=== PATIENT | male | born 1980 | race Caucasian/White ===

== ENCOUNTER 2021-01-25 00:22 | Emergency (ER) | payer OTHER, SELFPAY ==
[2021-01-25 00:24] VITALS: BP 163/82; PULSE 64; RESP 18; TEMP 36.3; O2SAT 96
[2021-01-25] MEDS: TETANUS,DIPHTHERIA,AC PERTUSSIS ADULT (0.5 ML) BOOSTRIX IM (02:07)
--- NOTE | 2021-01-25 02:32 | ED.GENADULT ---
HPI - General Adult General Chief complaint: Wound/Laceration Stated complaint: Finger lac Time Seen by Provider: 01/25/21 00:57 History of Present Illness HPI narrative: Patient is a 40-year-old gentleman who presents the emergency department with chief complaint of left index finger laceration. Patient reports he was chopping vegetables and chopped off the tip of his left index finger. The patient states that it is continued to count ooze since the laceration occurred reports does not have the residual flap. Patient reports thinks his last tetanus shot was around 2004. Patient states that otherwise he is intact motor and sensory proximal to the injury. Related Data Home Medications Medication Instructions Recorded Confirmed No Home Medications 01/25/21 01/25/21 Allergies Allergy/AdvReac Type Severity Reaction Status Date / Time No Known Allergies Allergy Verified 01/25/21 00:26 Review of Systems Review of Systems: Narrative: A 10 system review of systems was completed on the patient and is negative except for what is stated in the HPI. Nursing and ancillary documentation was reviewed. [facility] Family History Family History Sibling Hypertension Exam Narrative: Exam Narrative: GENERAL: Well-appearing, well-nourished, and in no acute distress. HEAD: Normocephalic, atraumatic. EYES: PERRLA and EOMI. ENT: Nares clear, no rhinorrhea or epistaxis. Mucous membranes moist. NECK: Supple. CHEST: Clear to auscultation. No respiratory distress. HEART: Regular rate and rhythm. No murmur heard. Normal peripheral pulses. ABDOMEN: Soft, nontender, nondistended, normal active bowel sounds. EXTREMITIES: Normal range of motion. No edema. There is 1/2 cm avulsion to the tip of the left index finger. The tissue was unable to be approximated with suture. SKIN: Warm, dry, no rash. NEURO: No focal deficits. Alert and oriented x3. PSYCH: Normal mood and affect. Course Course Emergency Course: Due to the foot being avulsed of the finger a hemostatic dressing was applied to the wound. A tetanus shot was given to the patient. Patient will be discharged to follow-up with plastic/hand surgery. Vital Signs Vital signs: Vital Signs Temperature 36.3 C L 01/25/21 00:24 Pulse Rate 64 01/25/21 00:24 Respiratory Rate 18 01/25/21 00:24 Blood Pressure 163/82 H 01/25/21 00:24 Pulse Oximetry 96 01/25/21 00:24 Temperature 36.3 C L 01/25/21 00:24 Pulse Rate 69 01/25/21 02:53 Respiratory Rate 14 01/25/21 02:53 Blood Pressure 142/75 H 01/25/21 02:53 Pulse Oximetry 99 01/25/21 02:53 Medical Decision Making Vital Signs Vital Signs: Vital Signs Temperature 36.3 C L 01/25/21 00:24 Pulse Rate 64 01/25/21 00:24 Respiratory Rate 18 01/25/21 00:24 Blood Pressure 163/82 H 01/25/21 00:24 Pulse Oximetry 96 01/25/21 00:24 Temperature 36.3 C L 01/25/21 00:24 Pulse Rate 69 01/25/21 02:53 Respiratory Rate 14 01/25/21 02:53 Blood Pressure 142/75 H 01/25/21 02:53 Pulse Oximetry 99 01/25/21 02:53 Discharge Plan Discharge Clinical Impression: Fingertip avulsion Qualifiers: Encounter type: initial encounter Qualified Code(s): S61.209A - Unspecified open wound of unspecified finger without damage to nail, initial encounter Patient Disposition: Home, Self-Care Condition: Stable Instructions: Antibiotic Form, Skin Avulsion (ED) Prescriptions: No Action No Home Medications RF: 0 Follow-up/Referrals: Adam Stockton MD [Physician] - 1 Week PHYSICIAN NOT ON STAFF,NONSTAFF [Primary Care Provider] - Time of Disposition: 02:37
[2021-01-25 02:53] VITALS: BP 142/75; PULSE 69; RESP 14; O2SAT 99
== END 2021-01-25 02:54 | disposition home or self-care (01) ==
PROVIDERS: Emergency Provider Emergency Medicine
DX: S61.201A Unspecified open wound of left index finger without damage to nail, initial encounter (principal); Z23 Encounter for immunization; W27.4XXA Contact with kitchen utensil, initial encounter; Y93.G1 Activity, food preparation and clean up
CPT/HCPCS: 90471; 90715; 99282

== ENCOUNTER 2022-07-09 08:00 | Outpatient (RCR) | payer OTHER, SELFPAY ==
--- NOTE | 2022-04-30 10:28 | PTOPEVAL ---
PHYSICAL THERAPY INITIAL EVALUATION. Thank you for referring Atul Hall to [facility].? The patient is scheduled to be seen for therapy? 1x/week for 4 weeks. Please review, sign, date and return this plan of care KASSANDRA. I agree with and certify that the following plan of care is medically necessary. Referring Physician Date Attending Provider: Lois Trujillo NP *PT Outpatient Evaluation Start: 04/30/22 Evaluation Information Diagnosis low back pain Onset chronic Subjective Information Pt states he was in the [employer] Query Text:As Reported By Patient/ Misa for many years. 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 He states he thinks this is just chronic wear and tear from being in the [employer]. He reports pain around his L PSIS , he states this does not prevent him from working out or performing his daily tasks. He states he has had this issue before were he would have to stop working and go lay down on the floor. He states it feels best after he works out and hurts the most when it is standing sit on a hard floor. Pain Assessment Left Lower Back Reported Pain Level 5 Pain Description Aching,Sharp Pain Frequency Chronic,Intermittent Lowest Pain Intensity 2 Greatest Pain Intensity 7 Pain Aggravating Factors Prolonged Position,Walking, Weight Bearing/Standing Lumbar ROM Lumbar Flexion (0-90) 60 Lumbar Flexion Active Mid Stanley Lumbar Extension (0-40) 10 Lateral Flexion 2 in above lateral joint line Query Text:Active Hands to: bilaterally Lateral Rotation Right (0-45) 20 Lateral Rotation Left (0-45) 20 Lumbar ROM 75% of Normal Normal Lumbar Segmental Motion No Lower Extremity Range of Motion Gross Lower Extremity Range of Motion sandy hip flexion to 100 Lower Extremity Muscle Strength Testing General Lower Extremity Strength WFL/Left,WFL/Right Gross Lower Extremity Strength sandy LE grossly 5/5 sandy hip abduction 4/5 Muscle Length Testing Two-Joint Hip Flexor Shortened Muscles Short (R) Iliopsoas,Short (L) Iliopsoas,Short (R) Rectus Femoris,Short (L) Rectus
--- NOTE | 2022-05-13 08:44 | PCPTNOTE ---
Patient no showed to appointment. Called and spoke with patient who states he got called out of town for work. Patient reports he needs to cancel appointment on 06/02/22 but will be at appointment on 05/21/22.
--- NOTE | 2022-06-02 09:01 | PCPTNOTE ---
Patient called & cancelled scheduled progress report this date due to work conflicts. He has been rescheduled.
--- NOTE | 2022-06-11 09:36 | PTOPPROG ---
Evaluation Information Assessment Status Progress Diagnosis back pain Onset chronic Subjective Information Pt states his back pain is doing better, but he also has not been doing his usual daily exercise. He reports fair compliance with his therapy HEP. He states he has also been working from home which has limited his time standing on concrete. Assessment PT Clinical Summary Atul presents to therapy today for his progress report following 2 visits of skilled therapy and intermittent participation in a HEP. He reports decreased pain in the last week but has also been resting more than he usually does. He continues to have significantly decreased ROM in his hamstrings and hip flexors bilaterally. Continuation of HEP in indicated. Pt will follow up in a month to address HEP and to progress as needed. Plan of Care Interventions Manual Therapy,Neuro Re-education,Patient/ Caregiver Educati,Therapeutic Activities, Therapeutic Exercise PT Services Indicated Yes Treatment Frequency and follow up in one month if needed Duration These treatments will address the objective and functional deficits as defined above. The patient will be advanced safely and appropriately in order for the patient to progress towards his/her prior level of function. Additional exercises will be introduced and as well as a comprehensive home exercise program upon discharge, if needed, ?to ensure carryover of functional gains achieved in the clinic. This treatment plan has been reviewed and agreement upon by the patient.
--- NOTE | 2022-07-09 08:34 | PTOPDC ---
Assessment and note entered by Pauline Wilson, PT, DPT Evaluation Information Assessment Status Discharge Diagnosis back pain Onset chronic Subjective Information Pt states he has localized soreness that is borderline pain after exercise. He also has pain when he stands for a prolonged period of time. He states stretching after exercise helps to manage his pain very well. He states currently he has a very mild pain that is localized, he states he has had this for 20 years. Reported Pain Level Pain Score 1: Self Report Assessment PT Clinical Summary Atul presents to therapy today for his progress report following another month long participation in his home stretching program along side with his general exercises. Today he demonstrates improved LE flexibility and improved spinal mobility. He reports less pain after exercise. He was instructed in additional exercise to address his core strength. He has met all of his therapy goals at this time. Skilled therapy services are no longer indicated and pt will be discharged at this time. Plan of Care PT Services Indicated No Treatment Frequency and to be discharged Duration
== END 2022-07-21 09:05 | disposition home or self-care (01) ==
LOC: ANHGOSHPT 08:00
PROVIDERS: PCP Family Medicine; Visit Provider Nurse Practitioner Family
DX: M54.50 Low back pain, unspecified (principal)
CPT/HCPCS: 97110; 97112; 97140; 97161

== ENCOUNTER 2024-03-05 09:05 | Outpatient (CLI) | payer OTHER, SELFPAY ==
[2024-03-05 12:52] LABS: Hematocrit 48.5 % (42.0-52.0); Hemoglobin 16.5 g/dL (14.0-18.0); Mean Corpuscular Hemoglobin 30.2 pg (26-34); Mean Corpuscular Volume 88.8 fl (80-100); Mean Platelet Volume 10.3 fl (7.4-10.4); Platelet Count Result 256 k/mm3 (150-375); Red Blood Count 5.46 M/mm3 (4.6-6.20); Red Cell Distribution Width 12.3 % (11.5-14.5); White Blood Count 7.3 K/mm3 (4.5-10.0)
[2024-03-05 13:07] LABS: Alanine Aminotransferase 44 U/L (6-50); Albumin Level 4.4 g/dL (3.5-5.1); Alkaline Phosphatase 58 U/L (38-126); Anion Gap 4 mmol/L (4-12); Aspartate Amino Transferase 55 U/L (17-59); Bilirubin,Total 0.8 mg/dL (0.2-1.3); Blood Urea Nitrogen 11 mg/dL (9-20); Calcium 9.1 mg/dL (8.4-10.2); Carbon Dioxide 28 mmol/L (22-30); Chloride 105 mmol/L (98-107); Cholesterol 222 mg/dL (0-200); Estimated Glomerular Filt Rate > 60; Glucose 95 mg/dL (65-110); HDL Direct 37 mg/dL; Potassium 4.3 mmol/L (3.4-5.0); Sodium 137 mmol/L (137-145); Triglycerides 188 mg/dL (<150)
[2024-03-05 13:18] LABS: LDL Cholesterol Direct 161 mg/dL
== END 2024-03-05 09:06 | disposition home or self-care (01) ==
LOC: ANHGOSHLAB 09:07
PROVIDERS: PCP Family Medicine; Visit Provider Nurse Practitioner
DX: Z00.00 Encounter for general adult medical examination without abnormal findings (principal)
CPT/HCPCS: 36415; 80053; 80061; 84443; 85027

== ENCOUNTER 2024-04-15 13:51 | Emergency (ER) | payer OTHER, SELFPAY ==
[2024-04-15 14:12] VITALS: BP 133/86; PULSE 67; RESP 18; TEMP 36.3; O2SAT 97
--- NOTE | 2024-04-15 16:30 | ED.EYEPROB ---
HPI - Eye Problem General Chief complaint: Eye Problems Stated complaint: right eye redness Time Seen by Provider: 04/15/24 16:19 History of Present Illness HPI Narrative: patient is a 44-year-old male with history of high cholesterol, on a statin here with pain below the right eye. He states that he began this morning. He notes that he has some pain and swelling in the lower eyelid on the right side. He denies any eye discharge but has been experiencing some itching in his right eye. He denies any vision changes. He does not use contact lenses, denies any eye trauma. He has not done anything for his symptoms. He notes some superficial pain on the surface of his eye when he moves it around, no posterior eye pain with range of motion. Related Data Allergies Allergy/AdvReac Type Severity Reaction Status Date / Time No Known Allergies Allergy Verified 03/05/24 08:24 Review of Systems Review of Systems: All systems reviewed & are unremarkable except as noted in HPI and below PMFSH Past Medical History Medical History Mixed hyperlipidemia No active medical problems Surgical History Surgical History No history of previous surgery Family History Family History Sibling Hypertension Social History Social History Smoking status: Former smoker Second hand tobacco smoke exposure: No Alcohol intake: current Substance use: never Substance use type: does not use Do You Feel Safe in your Home?: Yes Lack of Transportation: No Lack of Food: Never True Current Housing: I Have Housing Concerned About Future Housing: No Difficulty Paying Gas/Electric Bills: No Difficulty Paying for Meds: No Currently Unemployed: No Education: Bachelor's Degree Difficulty w/ Childcare or Family Care: No Living arrangements: with family Occupation/Education: occupation Gender identity (if verbalized by the patient): Male Agree to blood products: Yes Exam Narrative: GENERAL: Well-appearing, well-nourished, and in no acute distress. HEAD: Normocephalic, atraumatic. EYES: PERRLA and EOMI. Patient has 83 mm area of erythema on the right lower eyelid at the water line. He has tenderness at this area and just below this area. He has some mild edema throughout the lower eyelid. No pain with range of motion, no orbital tenderness. No erythema around the orbit aside from the small amount on the edge of the eye lid. no fluorescein uptake bilaterally. ENT: Nares clear. Mucous membranes moist. NECK: Supple. CHEST: Unlabored respirations HEART: Normal peripheral pulses. SKIN: Warm, dry, no rash. Course Course Emergency Course: Chart review performed. Patient here for painful itching right eye. Triage vitas normal. Patient seen evaluated, nontoxic appearing. He appears to have a superficial anterior infection of the lower eyelid consistent with hordeolum or developing early preseptal cellulitis. No concern for deep space infection. no corneal abnormalities seen on fluorescein staining. Advise warm compresses, Tylenol, ibuprofen for pain. monitoring for worsening symptoms. Will start him on antibiotics with Keflex. The results of pertinent diagnostic studies and exam findings were discussed. The patient?s provisional diagnosis and plan of care were discussed with the patient and present family. The patient and/or present family expressed understanding of the diagnosis and plan. The nurse was instructed to provide written instructions and appropriate follow-up information. The patient understands their need and responsibility to obtain additional follow-up as instructed. The risks of medications administered and prescribed were discussed with the patient and family present. Vi
[2024-04-15] MEDS: CEPHALEXIN 500 MG CAPSULE PO (18:11)
[2024-04-15 18:18] VITALS: BP 130/72; PULSE 74; RESP 16; TEMP 36.8; O2SAT 100
== END 2024-04-15 18:20 | disposition home or self-care (01) ==
PROVIDERS: Emergency Provider Student in an Organized Health Care Education/Training Program; PCP Family Medicine
DX: H00.012 Hordeolum externum right lower eyelid (principal); E78.2 Mixed hyperlipidemia; Z87.891 Personal history of nicotine dependence; Z79.899 Other long term (current) drug therapy
CPT/HCPCS: 99283; A9270

== ENCOUNTER 2024-09-11 07:53 | Outpatient (CLI) | payer OTHER, SELFPAY ==
[2024-09-11 15:42] LABS: Basophils Absolute Auto 0.1 K/mm3 (0.0-0.1); Basophils Percent Auto 1.1 % (0.2-1.2); Eosinophils Absolute Auto 0.2 K/mm3 (0-0.3); Eosinophils Percent Auto 3.9 % (0-4.4); Hematocrit 49.2 % (42.0-52.0); Hemoglobin 16.4 g/dL (14.0-18.0); Immature Granulocyte Absolute 0.04 K/mm3 (0.00-0.031); Immature Granulocyte Percent A 0.6 % (0-0.5); Lymphocytes Absolute Auto 1.25 K/mm3 (0.9-3.2); Lymphocytes Percent Auto 20.2 % (18.3-44.2); Mean Corpuscular HGB Conc 33.3 g/dl (32-36); Mean Corpuscular Hemoglobin 30.1 pg (26-34); Mean Corpuscular Volume 90.4 fl (80-100); Mean Platelet Volume 10.2 fl (7.4-10.4); Monocytes Absolute Auto 0.5 K/mm3 (0.1-0.6); Monocytes Percent Auto 7.4 % (2.6-8.5); Neutrophils Absolute Auto 4.1 K/mm3 (1.3-6.7); Neutrophils Percent Auto 66.8 % (45.5-73.1); Platelet Count Result 249 k/mm3 (150-375); Red Blood Count 5.44 M/mm3 (4.6-6.20); Red Cell Distribution Width 12.5 % (11.5-14.5); White Blood Count 6.2 K/mm3 (4.5-10.0)
[2024-09-11 16:05] LABS: Cholesterol 171 mg/dL (0-200); HDL Direct 45 mg/dL; Triglycerides 119 mg/dL (<150)
[2024-09-11 16:17] LABS: LDL Cholesterol Direct 87 mg/dL
[2024-09-11 16:32] LABS: Free T4 Free Thyroxine 1.06 ng/dL (0.78-2.19)
[2024-09-12 07:19] LABS: Triiodothyronine T3 Free 3.9 pg/mL (2.3-4.2)
[2024-09-15 17:43] LABS: Testosterone Free 90.9 pg/mL (35.0-155.0); Testosterone Total 563 ng/dL (250-1100)
[2024-09-22 20:53] LABS: Estradiol, Ultrasensitive 23 pg/mL (< OR = 29)
== END 2024-09-11 07:54 | disposition home or self-care (01) ==
DX: N52.9 Male erectile dysfunction, unspecified (principal); I10 Essential (primary) hypertension; E29.1 Testicular hypofunction
CPT/HCPCS: 36415; 80061; 82670; 84402; 84403; 84439; 84443; 84481; 85025

== ENCOUNTER 2024-09-28 10:16 | Outpatient (CLI) | payer OTHER, SELFPAY ==
[2024-09-28 12:14] LABS: Alanine Aminotransferase 45 U/L (6-50); Albumin Level 4.2 g/dL (3.5-5.1); Alkaline Phosphatase 55 U/L (38-126); Anion Gap 3 mmol/L (4-12); Aspartate Amino Transferase 71 U/L (17-59); Bilirubin,Total 0.8 mg/dL (0.2-1.3); Blood Urea Nitrogen 10 mg/dL (9-20); Carbon Dioxide 25 mmol/L (22-30); Chloride 107 mmol/L (98-107); Estimated Glomerular Filt Rate > 60; Glucose 89 mg/dL (65-110); Potassium 4.1 mmol/L (3.4-5.0); Sodium 135 mmol/L (137-145)
[2024-09-28 12:34] LABS: Prostate Specific Antigen 0.3 ng/mL (< OR = 4.0)
== END 2024-09-28 10:17 | disposition home or self-care (01) ==
LOC: ANHGOSHLAB 10:17
DX: I10 Essential (primary) hypertension (principal); Z12.5 Encounter for screening for malignant neoplasm of prostate
CPT/HCPCS: 36415; 80053; 84153; G0103

== ENCOUNTER 2024-12-20 08:37 | Outpatient (CLI) | payer OTHER, SELFPAY ==
--- OUTSIDE RECORDS SUMMARY | 2024-12-20 08:47 | XMS_ITS | Data Portability ---
Author Organization [place] - [facility], [place] Address [address] [place] [address] Assessment Encounter Date Assessment Date Assessment LastModified by Organization Details LastModified Time 02/24/2023 02/24/2023 43yo male hx of fever, postnasal drip and worsening cough X 6days s/s c/w sinusitis vs bronchitis vs early pneumonia will treat with Azithromycin for bacterial coverage recommend Rest, fluids, Tylenol for Fever or pain as needed. additional treatment/instru ctions outlined below. recommend monitoring for any new or worsening sx reason to return given. ER precautions discussed follow up with PCP Therapies chosen based on availability to the patient and likely patient adherence, after careful consideration of risk and benefit and shared decision making with the patient. Proper use of medications discussed. -- I examined the patient and available data and noted a non toxic presentation appropriate for outpatient therapy as described. Patient / car stower was informed that all needed current evaluation and testing has been performed but a small risk of an undiagnosed serious condition could still exist and in case of worsening symptoms or new symptoms it is essential to seek medical evaluation(go to the nearest ER) immediately. I elicited and answered questions. On discharge patient walked comfortably without assistance, agreeable with plan to follow up as directed and call back or return immediately if any concerns. [email or web address] Not available 02/24/2023 14:05:24 Plan of Treatment Reminders Order Date Submit Date Provider Last Modified By Organization Details Last Modified Time Details Appointments None recorded. Lab rapid strep group A, throat [email or web address], [address], 3 18:06:25 strep group A, DNA, swab [address], [address], 3 18:06:25 SARS CoV 2 (COVID-19) Ag, QL, [place], upper respiratory specimen [address], [address], 3 14:08:56 influenza virus A + B and SARS CoV 2 (COVID-19) and RSV RNA panel, NICOLE+probe, respiratory specimen [address], [address], 3 18:06:25 Referral None recorded. Procedures None recorded. Surgeries None recorded. Imaging None recorded. Medication Orders albuterol sulfate HFA 90 mcg/actuati on aerosol inhaler 2022 023 [id number], [address] [place] [address], [address], 3 14:09:00 benzonatate 200 mg capsule 2022 023 [id number], [address] [place] [address], [address], 3 14:08:59 Zithromax Z-Marco 250 mg tablet 2022 023 [id number], [address] [place] [address], [id number], 3 14:08:58 Patient TargetsNo targets recorded. Patient Instructions Encounter Date Encounter Id Patient Instructions Last Modified By Organization Details Last Modified Time 02/24/2023 [id number] Take medication as prescribed. May perform saline rinses using NetiPot. Warm mist humidifier at night for sleeping. Maintain hydration, increase fluid intake. Tylenol/Motrin for Fever or pain as needed. Follow up with PCP for any ongoing or worsening symptoms. Go to ER if you develop shortness of breath, difficulty breathing, chest pain, high fever, or any other concerning symptoms. [email or web address] Not available 02/24/2023 14:06:30 Reason for Referral None Reported. Results Created Date Observation Date Name Description Value Unit Range Abnormal Flag Note LastModifiedBy Organization Detail LastModifiedTime 02/25/20 23 02/24/2023 strep group A, DNA, swab Result negati ve Not Available [address], [address], 02/24/2023 16:10:44 02/25/20 23 02/24/2023 rapid strep group A, throa t Strep negati ve Not Available [address], [address], 02/24/2023 16:10:43 02/25/20 23 02/24/2023 influ inés virus A + B and SARS CoV 2 (COVI D-19) and RSV RNA panel , NICOLE+p robe, respi rator y speci men Flu A negati ve Not Available [address], [address], 02/24/2023 13:42:11 02/25/20 23 02/24/2023 influ inés virus A + B and SARS CoV 2 (COVI D-19) and RSV RNA panel , NICOLE+p robe, respi rator y speci men Flu B negati ve Not Available [address], [address], 02/24/2023 13:42:11 02/25/20 23 02/24/2023 influ inés virus A + B and SARS CoV 2 (COVI D-19) and RSV RNA panel , NICOLE+p robe, respi rator y speci men Sars-Cov-2 negati ve Not Available [place] [address] [place], [address], 02/24/2023 13:42:11 02/25/20 23 02/24/2023 influ inés virus A + B and SARS CoV 2 (COVI D-19) and RSV RNA panel , NICOLE+p robe, respi rator y speci men RSV negati ve Not Available [facility] [address] [place], [address], 02/24/2023 13:42:11 02/25/20 23 02/24/2023 SARS CoV 2 (COVI D-19) Ag, QL, IA, upper respi rator y speci men SARS-CoV-2 Ag negati ve Not Available [facility] [address] [place], [address], 02/24/2023 13:42:10 Result Notes None recorded. Medical Equipment None Reported. Medications Name Sig Start Date Stop Date Status Note LastModified by Organization Details LastModified Time methocarbamo l 500 mg tablet TAKE 1 TABLET BY MOUTH THREE TIMES DAILY NEEDED FOR MUSCLE PAIN active Not Available Not Available No t Available atorvastatin 20 mg tablet TAKE 1 TABLET BY MOUTH EVERY DAY AT BEDTIME active Not Available Not Available No t Available azithromycin 250 mg tablet TAKE 2 TABLETS BY MOUTH TODAY, THEN TAKE 1 TABLET DAILY FOR 4 DAYS active Not Available Not Available No t Available benzonatate 200 mg capsule TAKE 1 CAPSULE BY MOUTH THREE TIMES A DAY FOR 7 DAYS active Not Available Not Available N ot Available albuterol sulfate HFA 90 mcg/actuatio n aerosol inhaler INHALE 2 PUFFS EVERY 4 HOURS BY INHALATION ROUTE. active Not Available Not Available No t Available naproxen 500 mg tablet TAKE 1 TABLET BY MOUTH TWICE DAILY NEEDED FOR PAIN active Not Available Not Available No t Available Vitals Date Recorded Body height Body weight Body temperature Respiratory rate Oxygen saturation Oxygen saturation in Arterial blood by Pulse oximetry Heart rate Systolic blood pressure Diastolic blood pressure Provider Name and Address Organization Details Last Updated DateTime 3 182.88 cm 12756.3 2 g 98 [degF] 16 /min 95 % 95 % 82 /min 114 mm[Hg] 78 mm[Hg] Alis Jiang [facility] 3 13:45:43 Social History None recorded. Functional Status None recorded. Mental Status None recorded. Family History Nothing Reported. Medical History Condition Response Coronary Artery Disease N Other N Gout N Kidney Stones N Blood Diseases N Hyperthyroidism N Breast Cancer N Hypothyroidism N Lung Disease N COPD N Depression N Defects or Inherited Disease N Developmental or Behavioral Disorders N Breast Problem N Anesthesia Complications N Meniere's disease N Anxiety Disorder N Muscle, Joint, or Bone Problems N Obesity N Vision or Eye Problems N Arthritis N Infertility N Polyps N Mental Disorder N Cancer N Stroke N Varicosities N Endometriosis N Bladder or Kidney Problems N High Cholesterol Y Liver Disease N Fibromyalgia N Headaches N Kidney Disease N Allergies/Hayfever N Heart Problems N Ear or Hearing Problems N Hospitalizations N Thyroid Problems N GI Problems N ADD/ADHD N Skin Problems N Eating Disorder N Anemia N MRSA exposure N Constipation N Mental Illness N Ovarian Cancer N Diabetes N Seizures/Epilepsy N Tuberculosis N AIDS/HIV N Congestive Heart Failure (CHF) N Eczema N Diverticulitis N Abuse/Domestic Violence N Asthma N Reflux/GERD N Hepatitis N Heart Disease N Pulmonary Embolism N Chronic Ear Infections N Pre-Eclampsia N Hypertension N Autism Spectrum Disorder (ASD) N Osteoporosis N Past Encounters Encounter ID Performer Location Encounter Start Date Encounter Closed Date Diagnosis/Indication Diagnosis SNOMED-CT Code Diagnosis ICD10 Code Diagnosis Note [id number] [address] 02/24/2023 13:34:47 02/25/2023 09:34:46 Acute bronchitis 16786224 J20.9 Acute pharyngitis [id number] 003 J02.9 Health Concerns Section Related Observation LastModified by Organization Detai ls LastModified Time None Recorded Concern Status LastModified by Organization Details LastModified Time None Recorded Advance Directives Directive None Recorded Payers Encounter Date Sequence Insurance Name Policy Number Policy Wilburn Covered Member ID Wilburn Member ID Guarantor Name 02/24/2023 1 *SELF PAY* Sulema Hall Notes Date Note Type Note Provider Name and Address Organization Details Recorded Time 02/24/2023 text/html Upper Respirator y Symptoms HPI and ROSReported bypatient.Onset/Wesly ing/Duration:starte d6 day(s) ago Systemic (Constitutional):no body aches; no chills/sweats; no swollen glands; no significant weight loss;fever (HEENT)Bjpc-Qopq-Cr is-Ixjb-Zoouychl ear pain; no pink eye(s); no eye itching; no nasal itching; no nasal congestion; no sinus pain; no sore throat; no tonsillar exudates; no odynophagia (pain with swallowing); exposed to son who had strep this week Cardiovascular and Pulmonaryno chest pain; no shortness of breath; no wheezing;cough dry Gastrointestinalno nausea; no vomiting; no heartburn; no constipation; no diarrhea Skinno rash Musculoskeletalno back pain; no neck pain Neurological and Psychological Symptomsno headache; no fainting (syncope); no dizziness; no confusion; no taste disturbance Red Flag URI SymptomsNo shortness of breath, chest tightness, difficulty breathing, weight loss, or severe neck pain with flexion/extension Context:no foreign travel;sick contact JEANINE Callahan - [facility] 02/24/2023 18:06:28
[2024-12-20 14:34] LABS: Alanine Aminotransferase 38 U/L (6-50); Albumin Level 4.7 g/dL (3.5-5.1); Alkaline Phosphatase 57 U/L (38-126); Anion Gap 11 mmol/L (4-12); Aspartate Amino Transferase 30 U/L (17-59); Bilirubin,Total 0.6 mg/dL (0.2-1.3); Blood Urea Nitrogen 12 mg/dL (9-20); Calcium 9.3 mg/dL (8.4-10.2); Carbon Dioxide 26 mmol/L (22-30); Chloride 102 mmol/L (98-107); Cholesterol 133 mg/dL (0-200); Estimated Glomerular Filt Rate > 60; Glucose 77 mg/dL (65-110); HDL Direct 45 mg/dL; Potassium 4.7 mmol/L (3.4-5.0); Sodium 139 mmol/L (137-145); Triglycerides 102 mg/dL (<150)
[2024-12-20 14:45] LABS: LDL Cholesterol Direct 71 mg/dL
[2024-12-20 18:26] LABS: Free T3 3.98 pg/mL (2.71-6.16); Free T4 Free Thyroxine 1.07 ng/dL (0.78-2.19)
== END 2024-12-20 08:38 | disposition home or self-care (01) ==
LOC: ANHGOSHLAB 08:38
DX: R94.5 Abnormal results of liver function studies (principal); R53.83 Other fatigue; E78.5 Hyperlipidemia, unspecified
CPT/HCPCS: 36415; 80053; 80061; 84439; 84443; 84481

== ENCOUNTER 2025-01-25 00:31 | Day surgery (SDC) | payer OTHER, SELFPAY ==
[2025-01-15 10:41] VITALS: BMI 27.8
--- OUTSIDE RECORDS SUMMARY | 2025-01-25 00:34 | XMS_ITS | Continuity of Care Document ---
Author Name [facility] Organization [facility] Care Team Providers Care Hazardous Material Technician Name Role Phone [facility] Unavailable Unavailable Problems Combined list of problems from Department of Defense and Veterans Affairs facilities. It does not include entries that were removed or entered in error. Problem Status Onset Date Problem Type Date of Resolution Comments Source Macules And Papules Inactive Condition D oD visit for: administrative purpose Inactive Condition [facility] Vaccines Prophylactic Need Against Influenza Inactive Condition [facility] Vaccines Prophylactic Need Against Combinations Of Diseases Inactive Condition DoD visit for: screening exam neurological disorders traumatic brain injury Active Condition DoD TESTICLE Active Condition DoD PHARYNGITIS Inactive Condition DoD COMMON COLD Inactive Condition DoD BRONCHITIS Inactive Condition [facility] lower back pain Active Condition [facility] FOLLICULITIS Inactive Condition [facility] visit for: ears / hearing exam Active Condition DoD DERMATOPHYTOSIS ONYCHOMYCOSIS TOENAILS Active Condition DoD visit for: [employer] services flight physical Active Condition DoD NON-NEOPLASTIC NEVUS Active Condition [facility] visit for: screening exam Active Condition Discussed Dx and shave - Rx to remove Nevi as desired by Pt for Histo-pth confirmation and scheduled Rx in [facility]. [facility] DERMATITIS Active Condition Given mem candis's history of being in [place], leishmaniasis is a concern. However, these lesions to not have that appearance at this time. Lesions appear to be some form of irritation/derma titis. Will rx with steroid ointment. RTC if rash does not start improving with ointment. [facility] visit for: services physical Active Condition Laser Surveillance Exam. Ocular health normal. No glasses required at this time. DoD Medications Combined list of outpatient medications from Department of Defense and Veterans Affairs facilities.Medications provided include 1) outpatient medications from the last 15 months, and 2) patient-reported medications. Medication Details Route Status Patient Instructions Prescription Expires Prescription Number Last Dispense Date Ordering Provider Order Date Order Qty Source ATORVASTATI N CALCIUM (atorvastat in calcium), 20 MG, TABLET, ORAL, [facility], 500 ea. BOTTLE Active [id number] 2023 90 Pharmac y Data Transac tion Service Facilit y Allergies, Adverse Reactions, Alerts Combined list of allergies from Department of Defense and Veterans Affairs facilities. It does not include entries that were removed or entered in error. Substance Category Reaction Severity Reaction type Status Date Reported Comments Source No Known Allergies Drug allergy (disorder) active 07/13/2011 [facility] Immunizations Combined list of available immunizations from the Department of Defense and Veterans Affairs facilities. Immunization Series Date Given Administered By Site Reaction Lot Number CVX Code Drug Field Map Editor Status Comments Source COVID-19, mRNA, LNP-S, PF, 30 mcg/0.3 mL dose 2020 [facility] (PFR[facility] Not Given COVID-19, mRNA, LNP-S, PF, 30 mcg/0.3 mL dose DoD COVID-19, mRNA, LNP-S, PF, 30 mcg/0.3 mL dose 2020 [employer] (PFR) Not Given COVID-19, mRNA, LNP-S, PF, 30 mcg/0.3 mL dose DoD COVID-19, mRNA, LNP-S, PF, 30 mcg/0.3 mL dose 2020 [employer] (PFR) Not Given COVID-19, mRNA, LNP-S, PF, 30 mcg/0.3 mL dose DoD Influenza, injectable, MDCK, preservative free, quadrivalent 2019 ALUL, () Not Given Influenza , injectabl e, MDCK, preservat sonia free, quadrival ent DoD influenza, injectable, quadrivalent- pf 2013 [id number] GlaxoSmithKli ne complet ed influenza , injectabl e, quadrival ent-pf 09/19/14 Given Ambulat ory Pharmac y Influenza, injectable, quadrivalent, preservative free 0 2013 [id number] 150 SmithKline (SKB) complet ed Influenza , injectabl e, quadrival ent, preservat sonia free DoD anthrax vaccine 2012 UNK 24 Emergent Biosolutions complet ed anthrax vaccine 09/14/13 Given Ambulat ory Pharmac y anthrax vaccine 7 2012 UNK 24 [employer] [place] (MIP) complet ed anthrax vaccine DoD Influenza, injectable, MDCK-pf 2012 [id number] 153 CSL Behring complet ed Influenza , injectabl e, MDCK-pf 07/25/13 Given Ambulat ory Pharmac y Influenza, injectable, Madin Painter Canine Kidney, preservative free 0 2012 [id number] 153 CS [employer] Inc. (CSL) complet ed Influenza , injectabl e, Madin Yelitza Canine Kidney, preservat sonia free DoD typhoid vaccine, live, oral 2012 UNK 25 [employer]GS [employer] complet ed typhoid vaccine, live, oral 05/08/13 Given Ambulat ory Pharmac y typhoid vaccine, live, oral 5 2012 UNK 25 BioCee (V[employer]ua[employer]) complet ed typhoid vaccine, live, oral DoD yellow fever vaccine 2012 UNK 37 sanofi pasteur complet ed yellow fever vaccine 04/02/13 Given Ambulat ory Pharmac y yellow fever vaccine 0 2012 UNK 37 Sanofi Pasteur (PMC) complet ed yellow fever vaccine DoD influenza virus vaccine, live 2011 [id number] nviteune Inc comple t ed influenza virus vaccine, live 06/18/12 Given Ambulat ory Pharmac y influenza virus vaccine, live, attenuated, for intranasal use 1 2011 MIGUEL ROMANO T [id number] [email or web address], [place]. (MED) complet ed influenza virus vaccine, live, attenuate d, for intranasa l use DoD tetanus, diphtheria, acellular pertu is 2011 Radha t Arm [id number] sanofi pasteur complet ed tetanus, diphtheri a, acellular pertussis 04/27/12 Given Ambulat ory Pharmac y tetanus toxoid, reduced diphtheria toxoid, and acellular pertu is vaccine, adsorbed 1 2011 Unknown, Provider [id number] 115 Sanofi Pasteur (PMC) complet ed tetanus toxoid, reduced diphtheri a toxoid, and acellular pertussis vaccine, adsorbed DoD influenza, seasonal, injectable-pf 2010 UNK 140 Medimmune Inc comple t ed influenza , seasonal, injectabl e-pf 07/26/11 Given Ambulat ory Pharmac y Influenza, seasonal, injectable, preservative free 0 2010 UNK 140 [email or web address], Inc. (MED) complet ed Influenza , seasonal, injectabl e, preservat sonia free DoD tetanus-dipht h toxoids (Td) adult/adol 2010 [id number] 09 GlaxoSmithKli ne complet ed tetanus-d iphth toxoids (Td) adult/ado l 02/26/11 Given Ambulat ory Pharmac y tetanus and diphtheria toxoids, adsorbed, preservative free, for adult use (2 Lf of tetanus toxoid and 2 Lf of diphtheria toxoid) 0 2010 [id number] 09 [facility] (SKB) complet ed tetanus and diphtheri a toxoids, adsorbed, preservat sonia free, for adult use (2 Lf of tetanus toxoid and 2 Lf of diphtheri a toxoid) DoD influenza virus vaccine, live 2009 [id number] 111 sanofi pasteur complet ed influenza virus vaccine, live 08/21/10 Given Ambulat ory Pharmac y influenza virus vaccine, live, attenuated, for intranasal use 0 2009 [id number] 111 Sanofi Pasteur (PMC) complet ed influenza virus vaccine, live, attenuate d, for intranasa l use DoD Novel influenza-H1N 1-09, injectable 2009 UNK 127 complet ed Novel influenza -[id number], injectabl e 11/13/09 Given Ambulat ory Pharmac y typhoid Vi capsular polysaccharid e vac 2009 UNK 101 [employer] [facility] complet ed typhoid Vi capsular polysacch aride vac 11/13/09 Given Ambulat ory Pharmac y typhoid Vi capsular polysaccharid e vaccine 2 2009 UNK 101 [facility] ([facility]) complet ed typhoid Vi capsular polysacch aride vaccine DoD Novel influenza-H1N 1-09, injectable 0 2009 UNK 127 () complet ed Novel influenza -[id number], injectabl e DoD influenza virus vaccine, live 2008 [id number] [facility] comple t ed influenza virus vaccine, live 08/26/09 Given Ambulat ory Pharmac y influenza virus vaccine, live, attenuated, for intranasal use 0 2008 [id number] 111 [email or web address], Inc. (MED) complet ed influenza virus vaccine, live, attenuate d, for intranasa l use DoD anthrax vaccine 2008 UNK 24 Emergent Biosolutions complet ed anthrax vaccine 05/28/09 Given Ambulat ory Pharmac y anthrax vaccine 6 2008 UNK 24 [employer] [place] (MIP) complet ed anthrax vaccine DoD hepatitis B adult vaccine 2008 [id number] 43 GlaxoSmithKli ne complet ed hepatitis B adult vaccine 05/09/09 Given Ambulat ory Pharmac y [place] Encephalitis vaccine, SC 2008 [id number] 39 sanofi pasteur complet ed [place] Encephali tis vaccine, SC 05/09/09 Given Ambulat ory Pharmac y [place] Encephalitis Vaccine SC 4 2008 [id number] Sanofi Pasteur (PMC) complet ed [place] Encephali tis Vaccine [place] DoD hepatitis B vaccine, adult dosage 3 2008 [id number] 9AA 43 SmithKline (SKB) complet ed hepatitis B vaccine, adult dosage DoD hepatitis B adult vaccine 2007 [id number] 4AA 43 GlaxoSmithKli ne complet ed hepatitis B adult vaccine 09/23/08 Given Ambulat ory Pharmac y hepatitis B vaccine, adult dosage 2 2007 [id number] 4AA 43 SmithKline (SKB) complet ed hepatitis B vaccine, adult dosage DoD hepatitis B adult vaccine 2007 [id number] 4AA 43 GlaxoSmithKli ne complet ed hepatitis B adult vaccine 08/19/08 Given Ambulat ory Pharmac y hepatitis B vaccine, adult dosage 1 2007 [id number] 4AA 43 SmithKline (SKB) complet ed hepatitis B vaccine, adult dosage DoD influenza virus vaccine, live 2007 [id number] 111 [facility] comple t ed influenza virus vaccine, live 07/05/08 Given Ambulat ory Pharmac y anthrax vaccine 2007 [id number] 24 Emergent Biosolutions complet ed anthrax vaccine 07/05/08 Given Ambulat ory Pharmac y anthrax vaccine 5 2007 [id number] 24 [employer] [place] (MIP) complet ed anthrax vaccine DoD influenza virus vaccine, live, attenuated, for intranasal use 0 2007 [id number] 111 [email or web address], Inc. (MED) complet ed influenza virus vaccine, live, attenuate d, for intranasa l use DoD typhoid Vi capsular polysaccharid e vac 2007 UNK 101 [facility] complet ed typhoid Vi capsular polysacch aride vac 11/06/07 Given Ambulat ory Pharmac y anthrax vaccine 2007 UNK 24 Emergent Biosolutions complet ed anthrax vaccine 11/06/07 Given Ambulat ory Pharmac y anthrax vaccine 4 2007 UNK 24 [employer] [place] (MIP) complet ed anthrax vaccine DoD typhoid Vi capsular polysaccharid e vaccine 2 2007 UNK 101 [facility] ([facility]) complet ed typhoid Vi capsular polysacch aride vaccine DoD influenza virus vaccine,split 2006 [id number] 15 Unknown complet ed influenza virus vaccine,s plit 08/23/07 Given Ambulat ory Pharmac y influenza virus vaccine, split virus (incl. purified surface antigen)-reti red CODE 0 2006 [id number] 15 Unknown (UNK) complet ed influenza virus vaccine, split virus (incl. purified surface antigen)- retired CODE DoD anthrax vaccine 2006 FAV 113 24 Emergent Biosolutions complet ed anthrax vaccine 06/05/07 Given Ambulat ory Pharmac y anthrax vaccine 3 2006 FAV 113 24 [employer] [place] (MIP) complet ed anthrax vaccine DoD anthrax vaccine 2006 FAV 113 24 Emer[employer] Biosolutions complet ed anthrax vaccine 05/15/07 Given Ambulat ory Pharmac y anthrax vaccine 2 2006 FAV 113 24 [employer] [place] (MIP) complet ed anthrax vaccine DoD anthrax vaccine 2006 [id number] 24 Emergent Biosolutions complet ed anthrax vaccine 05/01/07 Given Ambulat ory Pharmac y anthrax vaccine 1 2006 [id number] 24 [employer] [place] (MIP) complet ed anthrax vaccine DoD influenza virus vaccine, live 2005 [id number] 111 [employer] comple t ed influenza virus vaccine, live 07/01/06 Given Ambulat ory Pharmac y influenza virus vaccine, live, attenuated, for intranasal use 0 2005 [id number] 111 [email or web address], Inc. (MED) complet ed influenza virus vaccine, live, attenuate d, for intranasa l use DoD [place] Encephalitis vaccine, SC 2005 [id number] 39 sanofi pasteur complet ed [place] Encephali tis vaccine, SC 04/26/06 Given Ambulat ory Pharmac y [place] Encephalitis Vaccine SC 4 2005 [id number] 39 Sanofi Pasteur (PMC) complet ed [place] Encephali tis Vaccine [place] DoD vaccinia (smallpox) vaccine 2004 UNK 75 [facility] complet ed vaccinia (smallpox ) vaccine 11/18/04 Given Ambulat ory Pharmac y meningococcal polysaccharid e (MPSV4) 2004 UNK 32 sanofi pasteur complet ed meningoco ccal polysacch aride (MPSV4) 11/18/04 Given Ambulat ory Pharmac y meningococcal polysaccharid e vaccine (MPSV4) 0 2004 UNK 32 Sanofi Pasteur (PMC) complet ed meningoco ccal polysacch aride vaccine (MPSV4) DoD vaccinia (smallpox) vaccine 0 2004 UNK 75 [facility] ([facility]) complet ed vaccinia (smallpox ) vaccine DoD influenza virus vaccine,split 2003 [id number] 15 Unknown complet ed influenza virus vaccine,s plit 08/21/04 Given Ambulat ory Pharmac y influenza virus vaccine, split virus (incl. purified surface antigen)-reti red CODE 0 2003 [id number] 15 Other (OTH) complet ed influenza virus vaccine, split virus (incl. purified surface antigen)- retired CODE DoD typhoid Vi capsular polysaccharid e vac 2003 UNK 101 sanofi pasteur complet ed typhoid Vi capsular polysacch aride vac 08/03/04 Given Ambulat ory Pharmac y typhoid vaccine, parenteral 2003 UNKNOWN 41 Unknown complet ed typhoid vaccine, parentera l 08/03/04 Given Ambulat ory Pharmac y typhoid vaccine, parenteral, other than acetone-kille d, dried 0 2003 UNKNOWN 41 Unknown (UNK) comple t ed typhoid vaccine, parentera l, other than acetone-k illed, dried DoD typhoid Vi capsular polysaccharid e vaccine 1 2003 UNK 101 Sanofi Pasteur (PMC) complet ed typhoid Vi capsular polysacch aride vaccine [facility] tuberculin purified protein derivative 2003 [id number] sanofi pasteur complet ed tuberculi n purified protein derivativ e 02/11/04 Given Ambulat ory Pharmac y influenza virus vaccine,split 2002 [id number] 15 Unknown complet ed influenza virus vaccine,s plit 09/20/03 Given Ambulat ory Pharmac y influenza virus vaccine, split virus (incl. purified surface antigen)-reti red CODE 1 2002 [id number] 15 Other (OTH) complet ed influenza virus vaccine, split virus (incl. purified surface antigen)- retired CODE [facility] [place] Encephalitis vaccine, SC 2002 [id number] 39 Unknown complet ed [place] Encephali tis vaccine, [place] 05/08/03 Given Ambulat ory Pharmac y [place] Encephalitis Vaccine MO 3 2002 [id number] 39 Other (OTH) complet ed [place] Encephali tis Vaccine [facility] [place] Encephalitis vaccine, SC 2002 [id number] 39 Unknown complet ed [place] Encephali tis vaccine, MO 04/15/03 Given Ambulat ory Pharmac y [place] Encephalitis Vaccine [place] 2 2002 [id number] 39 Other (OTH) complet ed [place] Encephali tis Vaccine [facility] influenza virus vaccine,split 2001 UNKNOWN 15 Unknown complet ed influenza virus vaccine,s plit 08/17/02 Given Ambulat ory Pharmac y influenza virus vaccine, split virus (incl. purified surface antigen)-reti red CODE 1 2001 UNKNOWN 15 Unknown (UNK) comple t ed influenza virus vaccine, split virus (incl. purified surface antigen)- retired CODE [facility] typhoid vaccine, parenteral 2001 UNKNOWN 41 Unknown complet ed typhoid vaccine, parentera l 08/14/02 Given Ambulat ory Pharmac y typhoid vaccine, parenteral, other than acetone-marlene d, dried 1 2001 UNKNOWN 41 Unknown (UNK) comple t ed typhoid vaccine, parentera l, other than acetone-k feliciad, dried [facility] hepatitis A adult vaccine 2000 UNKNOWN 52 Unknown complet ed hepatitis A adult vaccine 05/15/01 Given Ambulat ory Pharmac y hepatitis A vaccine, adult dosage 2 2000 UNKNOWN 52 Unknown (UNK) comple t ed hepatitis A vaccine, adult dosage DoD hepatitis A adult vaccine 1999 UNKNOWN 52 Unknown complet ed hepatitis A adult vaccine 06/17/00 Given Ambulat ory Pharmac y yellow fever vaccine 1999 [id number] 37 [employer] complet ed yellow fever vaccine 06/17/00 Given Ambulat ory Pharmac y yellow fever vaccine 1 1999 [id number] 37 [place] (CON) complet ed yellow fever vaccine DoD hepatitis A vaccine, adult dosage 1 1999 UNKNOWN 52 Unknown (UNK) comple t ed hepatitis A vaccine, adult dosage DoD yellow fever vaccine 1999 UNK 37 sanofi pasteur complet ed yellow fever vaccine 06/07/00 Given Ambulat ory Pharmac y yellow fever vaccine 0 1999 UNK 37 Sanofi Pasteur (PMC) complet ed yellow fever vaccine DoD poliovirus vaccine, inactivated 1999 UNK 10 sanofi pasteur complet ed polioviru s vaccine, inactivat ed 03/07/00 Given Ambulat ory Pharmac y measles/mumps /rubella virus vaccine 1999 UNKNOWN 03 Unknown complet ed measles/m umps/rube lla virus vaccine 03/07/00 Given Ambulat ory Pharmac y tetanus-dipht h toxoids (Td) adult/adol 1999 UNKNOWN 09 Unknown complet ed tetanus-d iphth toxoids (Td) adult/ado l 03/07/00 Given Ambulat ory Pharmac y poliovirus vaccine, live, oral 1999 UNKNOWN 02 Unknown complet ed polioviru s vaccine, live, oral 03/07/00 Given Ambulat ory Pharmac y adenovirus vaccine, unspecified 1999 UNK 82 Unknown complet ed adenoviru s vaccine, unspecifi ed 03/07/00 Given Ambulat ory Pharmac y meningococcal polysaccharid e (MPSV4) 1999 UNKNOWN 32 Unknown complet ed meningoco ccal polysacch aride (MPSV4) 03/07/00 Given Ambulat ory Pharmac y trivalent poliovirus vaccine, live, oral 1 1999 UNKNOWN 02 Unknown (UNK) comple t ed trivalent polioviru s vaccine, live, oral DoD measles, mumps and rubella virus vaccine 1 1999 UNKNOWN 03 Unknown (UNK) comple t ed measles, mumps and rubella virus vaccine DoD tetanus and diphtheria toxoids, adsorbed, preservative free, for adult use (2 Lf of tetanus toxoid and 2 Lf of diphtheria toxoid) 1 1999 UNKNOWN 09 Unknown (UNK) comple t ed tetanus and diphtheri a toxoids, adsorbed, preservat sonia free, for adult use (2 Lf of tetanus toxoid and 2 Lf of diphtheri a toxoid) DoD poliovirus vaccine, inactivated 0 1999 UNK 10 Sanofi Pasteur (PMC) complet ed polioviru s vaccine, inactivat ed DoD meningococcal polysaccharid e vaccine (MPSV4) 1 1999 UNKNOWN 32 Unknown (UNK) comple t ed meningoco ccal polysacch aride vaccine (MPSV4) DoD adenovirus vaccine, unspecified formulation 0 1999 UNK 82 Unknown (UNK) comple t ed adenoviru s vaccine, unspecifi ed formulati on DoD Encounters Combined list of: 1) Encounters from Department of Veterans Affairs facilities going backup to the last 18 months, not all VA inpatient encounters are included; 2) Encounters from the Department of Defense facilities going backup to 280 months. Location Location Details Encounter Type Encounter Number Reason For Visit Attending Provider ADM Date DC Date Status Disposition Source [facility] 24 Physical Exams[place] OUTPATIENT [id number] FLIGHT MICHAEL GRECO 12/19 Released w/o Limitations [facility] [facility] OUTPATIENT [id number] Rash on back, since return from [place]. ARLENE OMER 08/03 Released w/o Limitations [facility] Ex[place] [facility]) [place] [id number] DERMATI TIS HALLIE PRECIADO 08/23 Released w/o Limitations [facility] [facility]) [place] [id number] coming in for shave bx x3 HALLIE PRECIADO 09/04 Released w/o Limitations [facility] [facility]) [place] [id number] laser surveil MANJULA Diaz 10/13 [place] [facility] [facility] [id number] Flight Phys - IOP MANJULA BENZ 02/27 [place] [facility] [facility]) [place] [id number] Aviatio n Long Form Physica l SHONACORETTA ROSA 03/01 [place] Limitations [facility] [facility]) [place] [id number] screeni opal DESTINEEDanitaKASSANDRA 07/05 [place]ased [place] Limitations [facility] [facility] [facility] [facility] [id number] Flight Phys-IO ALBERTINA GARNICA 09/06 [place]itations [facility] [facility] [facility] Physical Ex[place]) [place] [id number] TOE FUNGUS JAIDEN PHIPPS 04/24 [place]ased [place] Limitations [facility] [facility]) TELE CONSULT [id number] lab results LAKSHMI BEDOYA 07/17 [facility]( [facility]) [facility]( - [facility]) TELE CONSULT [id number] note for [facility] LAKSHMI BEDOYA 07/28 [facility]( [facility]- Flight Medic[facility]) OUTPATIENT [id number] LAWSON BENSON 08/08 Released w/o Limitations [facility]( [facility] ent Health Service s) [facility]( - [facility]) OUTPATIENT [id number] short form LAKSHMI BEDOYA 09/09 Released w/o Limitations [facility]( [facility]- Flight Medicin e Clinic) [facility]-B [facility]) OUTPATIENT [id number] HOMERO LORAINE TRIANA 09/09 Released w/o Limitations [facility]( [facility] Conserv -B65) [facility]( - [facility]) OUTPATIENT [id number] SHORT FORM MARY PRINCE 02/25 Released w/o Limitations [facility]( [facility]- [facility] Medicin e Clinic) [facility]-B 65) OUTPATIENT [id number] HOMEROLORAINE KONG 02/25 Released w/o Limitations [facility]( [facility] Conserv -B65) [facility]( - [facility] Medicine [facility]) OUTPATIENT [id number] consult TEQUILA HEWITT 08/07 Released w/o Limitations [facility]( [facility] Medicin e Clinic) [facility] [place] [facility] [place]) OUTPATIENT [id number] respira tory infecti on TEQUILA HEWITT 09/23 Released w/o Limitations [facility]( [facility] [place] [facility] [place]) [facility] [place] [facility]) OUTPATIENT [id number] flu like sx KOJO MARTELL 10/05 Released w/o Limitations [facility]( [facility] [place] - Med [place]) [facility]( - [facility] Medicine Clinic) OUTPATIENT [id number] short form flight/ 302 CHRISTINA LEVIN 02/26 Released w/o Limitations [facility]( [facility]- [facility] Medicin e Clinic) [facility]-B [facility]) OUTPATIENT [id number] LORAINE VALENTIN 02/26 Released w/o Limitations [facility]( Hearing Conserv -B65) [place] Avn) OUTPATIENT [id number] possibl e respira tory infecti on RACHANAKYLEE Jalil 07/13 Released w/o Limitations [place] Av[place] OUTPATIENT [id number] RACHANAKYLEE Jalil 07/15 Released w/o Limitations [place] [facility]( [place] [facility]) OUTPATIENT [id number] LUTHER Mckeon 01/16 Released w/o Limitations [facility]( [facility] [place] [facility]) [facility]( - [facility]) OUTPATIENT [id number] SFF/302 KODY WILLIAMSON ROSA 01/25 Released w/o Limitations [facility]( [facility]- Flight Medicin e Clinic) [facility](He aring Conserv-B 65) OUTPATIENT [id number] LORAINE VALENTIN 04/06 Released w/o Limitations [facility]( Hearing Conserv -B65) [facility] [place]([facility] 0058) OUTPATIENT [id number] Notes Entered by: ALISON BEATTY 26 Apr 2012 1501 ------- ------- ------- ------- -- vision screeni KAZ Greene 04/26 Released w/o Limitations [facility] [place] 0058) [facility] [place] Kay [place]([facility]) OUTPATIENT [id number] Notes Entered by: Jalil MCKEON 26 Apr 2012 1611 ------- ------- ------- ------- -- JOHN Heredia 04/26 Released w/o Limitations [facility] [place]Immu n Clinic- [facility]) [facility] Eliza [place], [place](Immun [facility]) OUTPATIENT [id number] Notes Entered by: AFSHIN DUNLAP 18 Jun 2012 0920 ------- ------- ------- ------- -- flu shot NASIMKELY Marshal 06/18 Released w/o Limitations [facility] [place](Immu n Clinic- [facility]) [facility] [place]) OUTPATIENT [id number] [facility] FLT PHY PART 1/RONNELL PEREZSRAVANI Nat 01/02 Released w/o Limitations [facility] [place]Phys ical Exam Clinic 57) [facility] [place]) OUTPATIENT [id number] Notes Entered by: ALISON BEATTY 02 Jan 2013 0825 ------- ------- ------- ------- -- flt MASSIEL Vázquez 01/02 Released w/o Limitations [facility] [place] 57) [facility] [place](Hearin g Conservat ion Program) OUTPATIENT [id number] Notes Entered by: Maria Eugenia TADEO 02 Jan 2013 1000 ------- ------- ------- ------- -- Flight Phys (Loc) KEVIN BAUER 01/02 Released w/o Limitations [facility] [place] [place]([facility] [place] OUTPATIENT [id number] [facility] FLT PHY PART 2/CHAVARRIA RONNELL MARSHA L 01/04 Released w/o Limitations [facility] BALDO Begum([facility] M01[facility] [place]) [facility] [place]([facility] [place]) OUTPATIENT [id number] [facility] /chavarria RONNELL MARSHA Maria Eugenia 01/23 Released w/o Limitations [facility] Vaishali suarez [place]([facility] M[facility] [place]) [facility] [place]([facility] [place]) TELE CONSULT [id number] Notes Entered by: VANCE HUI 01 Feb 2013 0847 ------- ------- ------- ------- -- biopsy results TOBIAS WOODARD E 02/01 [facility] Vaishali suarez BAL[place](AMH M01C [place]) [facility] Vaishali ly BAL[place]([facility]) OUTPATIENT [id number] Notes Entered by: Maria Eugenia TADEO 07 Feb 2013 1418 ------- ------- ------- ------- -- IMM-Upd ate/USJOHN OBREGON 02/07 Released w/o Limitations [facility] Vaishali suarez BAL[place](Immu n Clinic- [facility]) [facility](MCA SM Optometry Cln) OUTPATIENT [id number] FANNIE Gillespie 10/26 Released w/o Limitations [facility](M CASM Optomet ry Cln) [facility](SD Urology) OUTPATIENT [id number] contrac epAFIA Castro 08/26 Released w/o Limitations [facility](S D Urology ) [facility](MCA SM HC Program) OUTPATIENT [id number] Notes Entered by: RIA HO 01 Oct 2014 1203 ------- ------- ------- ------- -- Termina tion. BARON MCFADDEN 10/01 Released w/o Limitations [facility](M CASM HC Program ) [facility](MCA SM Chiroprac tic Cln) OUTPATIENT [id number] Back pain BULMARO HURTADO 10/10 Released w/o Limitations [facility](M CASM Chiropr actic Cln) [facility](MCA SM Chiroprac tic Cln) OUTPATIENT [id number] BULMARO HURTADO 10/31 Released w/o Limitations [facility](M CASM Chiropr actic Cln) [facility](MCA SM Chiroprac tic Cln) OUTPATIENT [id number] GREEN, BULMARO N 11/11 Released w/o Limitations [facility](M CASM Chiropr actic Cln) [facility](MCA SM Chiroprac tic Cln) OUTPATIENT [id number] GREEN, BULMARO N 11/19 Released w/o Limitations [facility](M CASM Chiropr actic Cln) [facility](MCA SM Chiroprac tic Cln) OUTPATIENT [id number] GREEN, BULMARO N 12/10 Released w/o Limitations [facility](M CASM Chiropr actic Cln) [facility](MCA SM MCMH Tm 2) OUTPATIENT [id number] ST, cough x1 week ([id number] ) MARYANN BENITEZ 12/27 Released w/o Limitations [facility](M CASM MCMH Tm 2) [facility](MCA SM Immediate Care) OUTPATIENT [id number] Notes Entered by: Arielle PHILLIPS 08 Jan 2015 0845 ------- ------- ------- ------- -- f/u MARYANN MG 01/08 Released w/o Limitations [facility](M CASM Immedia te Care) Procedures Combined list of: 1) Procedures from Department of Veterans Affairs facilities going back up to thelast 18 months, not all VA non-surgical procedures are included; 2) All procedures from the Department of Defense facilities. Procedure Procedure Type Code Date Perfomer Comments Sourc e No data available for this section Ambul[facility] ry Pharmacy VIS FUNCT SCREEN,AUTOMAT/GALE I-AUTOMAT BILAT QUANT DETERM VISUAL ACUITY,OCULAR ALIGN,COLOR VISION,PSEUDOISOCH ROMAT PLATES,& FIELD VIS (MAY INC ALL/SOME SCRN DETERM FOR CONTRAST SENSITIV,VIS UND GLARE) 2007 DoD VIS FUNCT SCREEN,AUTOMAT/GALE I-AUTOMAT BILAT QUANT DETERM VISUAL ACUITY,OCULAR ALIGN,COLOR VISION,PSEUDOISOCH ROMAT PLATES,& FIELD VIS (MAY INC ALL/SOME SCRN DETERM FOR CONTRAST SENSITIV,VIS UND GLARE) 2007 DoD DETERMINATION OF REFRACTIVE STATE 2007 DoD SHAVING OF EPIDERMAL OR DERMAL LESION, SINGLE LESION, TRUNK, ARMS OR LEGS; LESION DIAMETER 0.6 TO 1.0 CM 2006 [facility] SKIN TEST; TUBERCULOSIS, INTRADERMAL 2003 DoD THERAPEUTIC PROCEDURE, 1 OR MORE AREAS, EACH 15 MINUTES; THERAPEUTIC EXERCISES TO DEVELOP STRENGTH AND ENDURANCE, RANGE OF MOTION AND FLEXIBILITY 2014 DoD THERAPEUTIC PROCEDURE, 1 OR MORE AREAS, EACH 15 MINUTES; THERAPEUTIC EXERCISES TO DEVELOP STRENGTH AND ENDURANCE, RANGE OF MOTION AND FLEXIBILITY 2014 DoD THERAPEUTIC PROCEDURE, 1 OR MORE AREAS, EACH 15 MINUTES; THERAPEUTIC EXERCISES TO DEVELOP STRENGTH AND ENDURANCE, RANGE OF MOTION AND FLEXIBILITY 2014 [facility] CHIROPRACTIC MANIPULATIVE TREATMENT (CMT); SPINAL, 1-2 REGIONS 2014 DoD THERAPEUTIC PROCEDURE, 1 OR MORE AREAS, EACH 15 MINUTES; THERAPEUTIC EXERCISES TO DEVELOP STRENGTH AND ENDURANCE, RANGE OF MOTION AND FLEXIBILITY 2014 [facility] AUDIOMETRIC TESTING OF GROUPS 2013 [facility] PATIENT EDUCATION, NOT OTHERWISE CLASSIFIED, NON-PHYSICIAN PROVIDER, GROUP, PER SESSION 2013 [facility] VIS FUNCT SCREEN,AUTOMAT/GALE I-AUTOMAT BILAT QUANT DETERM VISUAL ACUITY,OCULAR ALIGN,COLOR VISION,PSEUDOISOCH ROMAT PLATES,& FIELD VIS (MAY INC ALL/SOME SCRN DETERM FOR CONTRAST SENSITIV,VIS UND GLARE) 2013 [facility] COLLECTION OF VENOUS BLOOD BY VENIPUNCTURE 2001 DoD REMOVAL IMPACTED CERUMEN REQUIRING INSTRUMENTATION, UNILATERAL 2000 DoD PURE TONE AUDIOMETRY (THRESHOLD); AIR ONLY 2011 DoD VISUAL FIELD EXAMINATION, UNI OR BILATERAL, WITH MEDICAL DIAGNOSTIC EVAL; LIMITED EXAM (EG, TANGENT SCREEN, AUTOPLOT, ARC PERIMETER, OR SINGLE STIMULUS LEVEL AUTO TEST, EG OCTOPUS 3 OR 7 EQUIVALENT) 2011 DoD PURE TONE AUDIOMETRY (THRESHOLD); AIR ONLY 2010 DoD SCREENING TEST OF VISUAL ACUITY, QUANTITATIVE, BILATERAL 2010 DoD PURE TONE AUDIOMETRY (THRESHOLD); AIR ONLY 2009 DoD VISUAL FIELD EXAMINATION, UNI OR BILATERAL, WITH MEDICAL DIAGNOSTIC EVAL; LIMITED EXAM (EG, TANGENT SCREEN, AUTOPLOT, ARC PERIMETER, OR SINGLE STIMULUS LEVEL AUTO TEST, EG OCTOPUS 3 OR 7 EQUIVALENT) 2009 DoD PURE TONE AUDIOMETRY (THRESHOLD); AIR ONLY 2008 DoD COLOR VISION EXAMINATION, EXTENDED, EG, ANOMALOSCOPE OR EQUIVALENT 2008 DoD SHAVING OF EPIDERMAL OR DERMAL LESION, SINGLE LESION, TRUNK, ARMS OR LEGS; LESION DIAMETER 0.5 CM OR LESS 2012 DoD PURE TONE AUDIOMETRY (THRESHOLD); AIR ONLY 2012 DoD COLOR VISION EXAMINATION, EXTENDED, EG, ANOMALOSCOPE OR EQUIVALENT 2012 [facility] IMMUNIZATION ADMINISTRATION BY INTRANASAL OR ORAL ROUTE; 1 VACCINE (SINGLE OR COMBINATION VACCINE/TOXOID) 2011 [facility] TETANUS, DIPHTHERIA TOXOIDS AND ACELLULAR PERTUSSIS VACCINE (TDAP), WHEN ADMINISTERED TO INDIVIDUALS 7 YEARS OR OLDER, FOR INTRAMUSCULAR USE 2011 [facility] SCREENING TEST OF VISUAL ACUITY, QUANTITATIVE, BILATERAL 2011 DoD Exercises A isted Exercises For ROM Exercises Assisted Exercises For ROM 81106 2014 BULMARO HURTADO glute airpplanes and standing wall ball tosses x 10 min DoD Chiropractic Manip Treatmt (CMT) Spinal One To Two Regions Chiropractic Manip Treatmt (CMT) Spinal One To Two Regions 30697 2014 BULMARO HURTADO lumbosacral facets bilat DoD Exercises A isted Exercises For ROM Exercises Assisted Exercises For ROM 69679 2014 BULMARO HURTADO N bird dogs x 10 min DoD Chiropractic Manip Treatmt (CMT) Spinal One To Two Regions Chiropractic Manip Treatmt (CMT) Spinal One To Two Regions 04765 2014 BULMARO HURTADO lumbar spine DoD Exercises A isted Exercises For ROM Exercises Assisted Exercises For ROM 99786 2014 BULMARO HURTADO 4 x planks x 8 min DoD Chiropractic Manip Treatmt (CMT) Spinal One To Two Regions Chiropractic Manip Treatmt (CMT) Spinal One To Two Regions 15344 2014 BULMARO HURTADO side posture lumbar manip and ART-4 R side DoD PT A e ment Kinetic Training Initial 30 Minutes PT Assessment Kinetic Training Initial 30 Minutes 56969 2014 BULMARO HURTADO 15 min: g med and piriformis stretching, mobility, movement patterns DoD Chiropractic Manip Treatmt (CMT) Spinal One To Two Regions Chiropractic Manip Treatmt (CMT) Spinal One To Two Regions 00633 2014 BULMARO HURTADO bilat SIJs DoD Exercises A isted Exercises For ROM Exercises Assisted Exercises For ROM 62927 2014 BULMARO HURTADO g med, threading needle, prayer stretches x 10 min [facility] Chiropractic Manip Treatmt (CMT) Spinal One To Two Regions Chiropractic Manip Treatmt (CMT) Spinal One To Two Regions 65951 2014 BULMARO HURTADO bilat Lumbosacral joints [facility] Audiometry Group Testing Audiometry Group Testing 04283 2013 BARON MCFADDEN [facility] Patient education, not otherwise cla ified, non-physician provider, group, per se ion 2013 MECCA CH [facility] Visual Function Screening Visual Function Screening 74423 2013 SAKINA HAMPTON [facility] Shaving Of Lesion Trunk Up to .5cm Shaving Of Lesion Trunk Up to .5cm 23374 2012 MARSHA CHAVARRIA [facility] Extensive Color Vision Testing Extensive Color Vision Testing 68699 2012 MASSIEL BRUNNER [facility] Tonometry Tonometry 02036 2012 MASSIEL BRUNNER [facility] Screening Test Of Visual Acuity, Quantitative, Bilateral Screening Test Of Visual Acuity, Quantitative, Bilateral 04604 2012 MASSIEL BRUNNER [facility] Immunization Admin By Intranasal / Oral Route One Vaccine Immunization Admin By Intranasal / Oral Route One Vaccine 76536 2011 MIGUEL ROMANO [facility] Influenza Virus Vaccine Live Intranasal 2011 MIGUEL ROMANO Influenza, Live, Intranasal; Series #: 1; .2 mL; IN; Intranasal; Mfg: CBTec.; Lot: [id number]. [facility] Threshold Audiogram (Pure Tone) Threshold Audiogram (Pure Tone) 86350 2011 LORAINE VALENTIN [facility] Tdap Vaccine Tdap Vaccine 00419 2011 JOHN MCKEON Tdap; Series #: 1; .5 mL; IM; Left Arm; Mfg: [employer] P[employer]; Lot: [id number]. [facility] Immunization Administration One Vaccine Immunization Administration One Vaccine 95893 2011 JOHN MCKEON [facility] Screening Test Of Visual Acuity, Quantitative, Bilateral Screening Test Of Visual Acuity, Quantitative, Bilateral 24193 2011 RASHAD BEATTY [facility] Extensive Color Vision Testing Extensive Color Vision Testing 40095 2011 KODY WILLIAMSON [facility] Visual Marsh Test Limited Examination Visual Marsh Test Limited Examination 35247 2011 KODY WILLIAMSON Screening Test Of Visual Acuity, Quantitative, Bilateral Screening Test Of Visual Acuity, Quantitative, Bilateral [address]Supervised Group Educational Services 2011 KODY WILLIAMSON Tonometry Tonometry 15496 2011 KODY WILLIAMSON Audiogram (Screening) Audiogram (Screening) 57198 2011 KODY WILLIAMSON Threshold Audiogram (Pure Tone) Threshold Audiogram (Pure Tone) 39922 2010 LORAINE VALENTIN Screening Test Of Visual Acuity, Quantitative, Bilateral Screening Test Of Visual Acuity, Quantitative, Bilateral 44314 2010 CHRISTINA LEVIN Extensive Color Vision Testing Extensive Color Vision Testing 94683 2010 CHRISTINA LEVIN Visual Marsh Test Limited Examination Visual Marsh Test Limited Examination 76983 2010 CHRISTINA LEVIN Patient Counseling Medical Management Individual Patient Patient Counseling Medical Management Individual Patient [id number] 2010 CHRISTINA LEVIN Tonometry Tonometry 73298 2010 CHRISTINA LEVIN Threshold Audiogram (Pure Tone) Threshold Audiogram (Pure Tone) 26094 2009 LORAINE VALENTIN Extensive Color Vision Testing Extensive Color Vision Testing 38054 2009 MARY PRINCE Visual Marsh Test Limited Examination Visual Marsh Test Limited Examination 26227 2009 MARY PRINCE Screening Test Of Visual Acuity, Quantitative, Bilateral Screening Test Of Visual Acuity, Quantitative, Bilateral [address]Supervised Group Educational Services 2009 MARY PRINCE Audiogram (Screening) Audiogram (Screening) 83058 2009 MARY PRINCE Tonometry Tonometry 49933 2009 MARY PRINCE Threshold Audiogram (Pure Tone) Threshold Audiogram (Pure Tone) 25047 2008 LORAINE VALENTIN Screening Test Of Visual Acuity, Quantitative, Bilateral Screening Test Of Visual Acuity, Quantitative, Bilateral 82549 2008 LAKSHMI BEDOYA Visual Marsh Test Limited Examination Visual Marsh Test Limited Examination 23012 2008 LAKSHMI BEDOYA [facility] Extensive Color Vision Testing Extensive Color Vision Testing 37117 2008 LAKSHMI BEDOYA [facility] Patient Counseling Medical Management Individual Patient Patient Counseling Medical Management Individual Patient [id number] 2008 LAKSHMI BEDOYA [facility] Tonometry Tonometry 65549 2008 LAKSHMI BEDOYA [facility] Visual Function Screening Visual Function Screening 09757 2007 ALBERTINA MCFADDEN [facility] Visual Function Screening Visual Function Screening 70247 2007 MANJULA BENZ [facility] Determination Of Refractive State Determination Of Refractive State 50687 2007 MANJULA BENZ Ophthalmological New Patient Start Comprehensive Care Ophthalmological New Patient Start Comprehensive Care 61145 2007 MANJULA BENZ Shaving Of Lesion Trunk .6 to 1cm Shaving Of Lesion Trunk .6 to 1cm 21214 2006 HALLIE PRECIADO [facility] Social History Combined list of available smoking, tobacco, and other social history from Department of Defense and Veterans Affairs facilities. Social History Type Response Date Comment Sourc e This section is an empty social history section. DoD Assessment and Plan Combined list of future care activities from Department of Defense and Veterans Affairs facilities (e.g., assessment and plan notes, appointments, orders, and referrals). Additional future care activities may be listed in the Plan of Care section. Result Assessment and Plan Date Source Assessment and Plan No data available for this section 01/25/2025 Ambulatory Pharmacy Functional Status Combined list of recent functional and cognitive assessments recorded at Department of Defense and Veterans Affairs ([facility] Functional [place] Measurement (FIM) Scale: 1 = Total Assistance (Subject = 0% +), 2 = Maximal Assistance (Subject = 25% +), 3 = Moderate Assistance (Subject = 50% +), 4 = Minimal Assistance (Subject = 75% +), 5 = Supervision, 6 = Modified [place] (Device), 7 = Complete [place] (Timely, Safely). Assessment Date/Time Source Assessment Type Assessment Skill Assessment Score Assessment Details No data available for this section
--- OUTSIDE RECORDS SUMMARY | 2025-01-25 00:34 | XMS_ITS | Data Portability ---
Author Organization [facility] Address [address] [place] [address] Assessment Encounter Date Assessment Date Assessment LastModified [...] for outpatient therapy as described. Patient / head host/hostess was informed that all needed current evaluation [...] back or return immediately if any concerns. Not available 02/24/2023 14:05:24 Plan of Treatment Reminders Order Date Submit Date Provider Last Modified By Organization Details Last Modified Time Details Appointments None recorded. Lab rapid strep group A, throat [address], [address], 3 18:06:25 strep group A, DNA, swab [address], [address], 3 18:06:25 SARS CoV 2 (COVID-19) Ag, QL, IA, upper respiratory specimen [address], [address], 3 14:08:56 influenza virus A + B and SARS CoV 2 (COVID-19) and RSV RNA panel, NICOLE+probe, respiratory specimen [address], [address], 3 18:06:25 Referral None recorded. Procedures None recorded. Surgeries None recorded. Imaging None recorded. Medication Orders albuterol sulfate HFA 90 mcg/actuati on aerosol inhaler 2022 023 [facility][id number], [address] [place] [address], [address], 3 14:09:00 benzonatate 200 mg capsule 2022 023 [id number], [address] [place] [address], [address], 3 14:08:59 Zithromax Z-Marco 250 mg tablet 2022 023 [facility][id number], [address] [place] [address], [address], 3 14:08:58 Patient TargetsNo targets recorded. Patient Instructions Encounter Date Encounter Id Patient Instructions Last Modified By Organization Details Last Modified Time 02/24/2023 [id number] Take medication as prescribed. May perform saline rinses using NetiPot. Warm mist humidifier at night for sleeping. Maintain hydration, increase fluid intake. Tylenol/Motrin for Fever or pain as needed. Follow up with PCP for any ongoing or worsening symptoms. Go to ER if you develop shortness of breath, difficulty breathing, chest pain, high fever, or any other concerning symptoms. Not available 02/24/2023 14:06:30 Reason for Referral None Reported. Results Created Date Observation Date Name Description Value Unit Range Abnormal Flag Note LastModifiedBy Organization Detail LastModifiedTime 02/25/20 23 02/24/2023 strep group A, DNA, swab Result negati ve Not Available [address], [address], 02/24/2023 16:10:44 02/25/20 23 02/24/2023 rapid strep group A, throa t Strep negati ve Not Available [address], [address], 02/24/2023 16:10:43 02/25/20 23 02/24/2023 influ inés virus A + B and SARS CoV 2 (COVI D-19) and RSV RNA panel , NICOLE+p robe, respi rator y speci men Flu A negati ve Not Available [address], [address], 02/24/2023 13:42:11 02/25/20 23 02/24/2023 influ inés virus A + B and SARS CoV 2 (COVI D-19) and RSV RNA panel , NICOLE+p robe, respi rator y speci men Flu B negati ve Not Available [address], [address], 02/24/2023 13:42:11 02/25/20 23 02/24/2023 influ inés virus A + B and SARS CoV 2 (COVI D-19) and RSV RNA panel , NICOLE+p robe, respi rator y speci men Sars-Cov-2 negati ve Not Available [facility] [address] [place], [address], 02/24/2023 13:42:11 02/25/20 23 02/24/2023 influ inés virus A + B and SARS CoV 2 (COVI D-19) and RSV RNA panel , NICOLE+p robe, respi rator y speci men RSV negati ve Not Available [facility] [address] [place], [address], 02/24/2023 13:42:11 02/25/20 23 02/24/2023 SARS CoV 2 (COVI D-19) Ag, QL, IA, upper respi rator y speci men SARS-CoV-2 Ag negati ve Not Available [facility] [address] [place], [address], 02/24/2023 13:42:10 Result Notes None recorded. Medical [...] Details Last Updated DateTime 3 182.88 cm 06394.3 2 g 98 [degF] 16 /min 95 % 95 % 82 /min 114 mm[Hg] 78 mm[Hg] Alis Jiang [facility] 3 13:45:43 Social History None recorded. Functional [...] SNOMED-CT Code Diagnosis ICD10 Code Diagnosis Note [id number] Stefany Dinero [address] [address] 02/24/2023 13:34:47 02/25/2023 09:34:46 Acute bronchitis [id number] J20.9 Acute pharyngitis 168670 003 J02.9 Health Concerns Section Related Observation [...] no swollen glands; no significant weight loss;fever (HEENT)Hnyp-Ugxz-He pt-Sela-Gvisjauh ear pain; no pink eye(s); no eye [...] Context:no foreign travel;sick contact JEANINE Callahan - [facility] 02/24/2023 18:06:28
--- NOTE | 2025-01-25 13:07 | P.PNAN_ITS ---
Anes - Initial Pre Proc Eval Procedure: Operation Date: 01/25/25 14:30 Proposed Procedures p Esophagogastroduodenoscopy&Screen Colon - Aakash Bruno MD Date/Time: 01/25/25 13:07 Surgeon: Aakash Bruno MD Pre Op Diagnosis: for screening for malignant neoplasm of COLON Patient Data Age: 44 Gender: M Height: 1.83 m Weight: 93 kg Allergies Allergy/AdvReac Type Severity Reaction Status Date / Time No Known Allergies Allergy Verified 01/15/25 10:40 Home Medications ?Medication ?Instructions ?Recorded ?Confirmed ?Type atorvastatin 20 mg tablet 20 mg PO QHS #30 tabs 09/04/24 01/15/25 Rx Patient hx anesthesia problems: none Family hx anesthesia problems: none Results Review: All pre-operative results and documents have been reviewed as part of the pre- operative evaluation. [facility] Past Medical History Medical History Mixed hyperlipidemia No active medical problems Surgical History Surgical History No history of previous surgery Family History Family History Sibling Hypertension Social History Social History Smoking status: Former smoker Second hand tobacco smoke exposure: No Alcohol intake: current Substance use: never Substance use type: does not use Do You Feel Safe in your Home?: Yes Lack of Transportation: No Lack of Food: Never True Current Housing: I Have Housing Concerned About Future Housing: No Difficulty Paying Gas/Electric Bills: No Difficulty Paying for Meds: No Currently Unemployed: No Education: Bachelor's Degree Difficulty w/ Childcare or Family Care: No Living arrangements: with family Occupation/Education: occupation Gender identity (if verbalized by the patient): Male Agree to blood products: Yes Anes - Eval Final PreProcedure Day of Procedure 01/25/25 13:07 Patient weight: normal Heart: regular rate and rhythm Lungs: clear to auscultation Airway: Mallampati scale class II Neurological: alert and oriented Last oral intake: >/= 8 hours ASA classification: II Emergent: no Anesthetic plan: proceed Anesthesia type and monitoring: general GIVS and standard monitoring Results Review: All pre-operative results and documents have been reviewed as part of the pre- operative evaluation. Informed Consent: The patient's anesthetic plan and its attendant risks and benefits were discussed with the patient/family/POA. Questions were solicited and answers provided to the satisfaction of the patient/family/POA.
[2025-01-25 13:10] VITALS: BP 119/76; PULSE 60; RESP 20; TEMP 36; O2SAT 99; BMI 27.4
[2025-01-25] MEDS: LACTATED RINGERS 1,000 ML 150 ML IV CONT (13:15)
--- NOTE | 2025-01-25 14:19 | PM.HPGS ---
History of Present Illness History of Present Illness Consent: Risks, benefits, and alternatives have been discussed and questions answered. Patient agrees to proceed with procedure. Chief complaint: for screening for malignant neoplasm of COLON Narrative: Atul Hall is a 44 year old male here for first screening colonoscopy and EGD. Also history of dysphagia, not taking ppi Review of Systems Review of Systems: All systems reviewed & are unremarkable except as noted in HPI and below PMFSH Past Medical History Medical History (Updated 01/25/25 @ 14:20 by Aakash Bruno MD) Dysphagia Mixed hyperlipidemia No active medical problems Surgical History Surgical History No history of previous surgery Family History Family History Sibling Hypertension Social History Social History Smoking status: Former smoker Second hand tobacco smoke exposure: No Alcohol intake: current Substance use: never Substance use type: does not use Do You Feel Safe in your Home?: Yes Lack of Transportation: No Lack of Food: Never True Current Housing: I Have Housing Concerned About Future Housing: No Difficulty Paying Gas/Electric Bills: No Difficulty Paying for Meds: No Currently Unemployed: No Education: Bachelor's Degree Difficulty w/ Childcare or Family Care: No Living arrangements: with family Occupation/Education: occupation Gender identity (if verbalized by the patient): Male Agree to blood products: Yes Meds Home Medications and Allergies Home Medications ?Medication ?Instructions ?Recorded ?Confirmed ?Type atorvastatin 20 mg tablet 20 mg PO QHS #30 tabs 09/04/24 01/25/25 Rx Allergies Allergy/AdvReac Type Severity Reaction Status Date / Time No Known Allergies Allergy Verified 01/25/25 13:08 Vital Signs Vital Signs - 24 hr 01/25/25 13:10 Temperature 96.8 F L Pulse Rate 60 Respiratory Rate 20 Blood Pressure 119/76 Pulse Oximetry 99 Oxygen Delivery Room Air Exam Const: General: comfortable and no acute distress HENMT: Face/Nose/Sinus: Normal nares present Eyes: General: appearance normal, both eyes and all related structures Neck: Neck: no JVD Resp: Auscultation: clear to auscultation bilaterally Cardio: Rate: regular rate Rhythm: regular rhythm GI: Inspection: non-distended GI Palp: Yes Soft to palpation Skin: General skin exam: normal color Neuro: General: gait normal Speech: normal speech Extrem: General: normal to inspection Psych: Mental Status: mental status grossly normal Assessment and Plan Assessment and plan (1) Screening for colon cancer: Code(s): Z12.11 - Encounter for screening for malignant neoplasm of colon Status: Acute Assessment and Plan: colonoscopy (2) Dysphagia: Code(s): R13.10 - Dysphagia, unspecified Status: Acute Assessment and Plan: egd with bx
[2025-01-25] MEDS: BENZOCAINE (*SP) 60 ML SPRAY CAN (HURRICAINE) 1 SPRAY MUCOUS MEM (14:20)
[2025-01-25 14:39] VITALS: BP 86/41; PULSE 67; RESP 20; O2SAT 98
[2025-01-25 14:49] VITALS: BP 106/69; PULSE 55; RESP 19; O2SAT 100
== END 2025-01-25 15:11 | disposition home or self-care (01) ==
PROVIDERS: Referring Provider Registered Nurse; Visit Provider Internal Medicine Gastroenterology
PROC: 0DJ08ZZ Inspection of Upper Intestinal Tract, Via Natural or Artificial Opening Endoscopic (ICD-10-PCS; CPT 45378; principal; 2025-01-25 14:30)
DX: Z12.11 Encounter for screening for malignant neoplasm of colon (principal); K63.5 Polyp of colon; K20.0 Eosinophilic esophagitis; E78.2 Mixed hyperlipidemia; Z87.891 Personal history of nicotine dependence
CPT/HCPCS: 43239; 45385; 88305; J2003; J2704; J7120